=== PATIENT | female | born 1965 | race Caucasian/White ===

== ENCOUNTER 2020-02-02 20:28 | Inpatient (IN) | payer MEDICAID ==
[~2020-02-02] VITALS: Ht 165.1 cm; Wt 148.5 kg
[~2020-02-02 20:28] MED LIST: CLOP75TA28 PO; LEVO200T46 PO; LISI-646 PO; METF-370 PO
[2020-02-02] MEDS ORDERED: DOXYCYCLINE 100 MG TAB/CAP PO ONE (23:45)
[2020-02-02] MEDS ORDERED: methylPREDNISolone SOD SUCC 125 MG/2 ML VL IM ONE (23:45)
[2020-02-02] MEDS ORDERED: cefTRIAXone SOD 1,000 MG VL IM ONE (23:45)
[2020-02-03 00:03] LABS: Basophils # (auto) 0 10 ^3/uL (0-0.2); Basophils % (auto) 0.2 % (0.0-2.0); Eosinophils # (auto) 0 10 ^3/uL (0-0.8); Hematocrit 47.4 % (36.0-46.0); Hemoglobin 15.5 g/dL (12.2-16.2); Lymphocytes % (auto) 29.6 % (10.0-50.0); Mean Corpuscular Hemoglobin 29.3 pg (28.0-32.0); Mean Corpuscular Hgb Conc. 32.8 g/dL (32.0-36.0); Mean Corpuscular Volume 89.2 fL (80.0-100.0); Monocytes # (auto) 0.5 10 ^3/uL (0-1.3); Monocytes % (auto) 7.4 % (0.0-12.0); Neutrophils # (auto) 4.2 10 ^3/uL (1.6-8.6); Neutrophils % (auto) 62.8 % (37.0-80.0); Nucleated Red Blood Cells % 0.1 %; Platelet Count (auto) 166 10^3/uL (140-450); Red Blood Cells 5.31 10^6/uL (4.0-5.20); Red Cell Distribution Width 14.9 % (11.8-14.3); White Blood Cell 6.7 10^3/uL (4.4-10.8)
[2020-02-03 00:22] LABS: INR 0.91 (0.9-1.15); Partial Thromboplastin Time 31.6 sec (23.0-31.2)
[2020-02-03 00:25] LABS: Albumin 3.6 g/dL (3.4-5.0); Calcium 8.5 mg/dL (8.5-10.1); Potassium 3.4 mmol/L (3.5-5.1)
[2020-02-03 00:30] LABS: Bilirubin, Total 0.4 mg/dL (0.2-1.0); Total Protein 7.6 g/dL (6.4-8.2)
[2020-02-03] MEDS ORDERED: ENOXAPARIN SOD 100 MG/1 ML SYRINGE SC ONE (01:00)
[2020-02-03] MEDS ORDERED: CLOPIDOGREL BISULFATE 75 MG TAB PO ONE (01:00)
[2020-02-03] MEDS ORDERED: POTASSIUM CHL 20 Meq TABLET PO ONE (01:15)
[2020-02-03 01:58] LABS: CRP High Sensitivity 0.89 mg/dL (< 0.3)
[2020-02-03] MEDS ORDERED: DOCUSATE SOD 100 MG CAP PO PRN (03:45)
[2020-02-03] MEDS ORDERED: ACETAMINOPHEN 500 MG TAB PO PRN (03:45)
[2020-02-03] MEDS ORDERED: MORPHINE SULF INJ 2 MG/ML SYRINGE 1ML IV PRN (03:45)
[2020-02-03] MEDS ORDERED: ONDANSETRON HCL 4 MG/2 ML VIAL IV PRN (03:45)
[2020-02-03] MEDS ORDERED: NITROGLYCERIN 0.4 MG SL TAB SL PRN (03:45)
[2020-02-03] MEDS ORDERED: DEXTROSE (50%) 50ML SYRG IV PRN (03:45)
[2020-02-03] MEDS ORDERED: cefTRIAXone 1GM/50ML D5W 50 ML IV ONE ×2 (08:12→08:30)
[2020-02-03] MEDS: ACCU-CHEK COMFORT CURVE STRIP VI SCH ×3 (08:28→16:54)
[2020-02-03] MEDS ORDERED: methylPREDNISolone SOD SUCC 125 MG/2 ML VL IV ONE (08:30)
[2020-02-03] MEDS: InsuLIN REG 1unit/0.01ml Soln (100units/ml) SC SCH ×4 (08:33→22:56)
[2020-02-03] MEDS: LEVOTHYROXINE SODIUM 100 MCG TAB PO SCH (09:23)
[2020-02-03] MEDS: DOXYCYCLINE 100MG/250ML 250 ML IV SCH (10:00)
[2020-02-03] MEDS: ENOXAPARIN SOD 40 MG/0.4 ML SYRINGE SC SCH (10:00)
[2020-02-03] MEDS: DexAMETHasone SOD PHOS 10MG/1ML VIAL INJ IV SCH (10:00)
[2020-02-03] MEDS: CHOLECALCIFEROL (VITD3) 2,000 UNIT CAP PO SCH (10:19)
[2020-02-03] MEDS: ASCORBIC ACID 1,000 MG TAB PO SCH (10:19)
[2020-02-03] MEDS: ZINC SULFATE 220mg CAP or TAB PO SCH (10:20)
[2020-02-03] MEDS: MULTIPLE VITAMIN TAB PO SCH (10:20)
[2020-02-03] MEDS: PANTOPRAZOLE 40 MG/10 ML VIAL INJ IV SCH (10:20)
[2020-02-03] MEDS: BUDESONIDE (INHALATION) 180 MCG IH IN SCH ×2 (11:18→22:29)
[2020-02-03] MEDS ORDERED: REMDESIVIR PER PHARMACY 0 ML IV SCH (19:30)
[2020-02-03] MEDS ORDERED: REMDESIVIR 200 MG in NS 210ml LOADING DOSE ADULT IV ONE (22:15)
[2020-02-03] MEDS: ALBUTEROL SULF HFA 90MCG INH 200DOSE IN PRN (22:29)
[2020-02-04] MEDS: DOXYCYCLINE 100MG/250ML 250 ML IV SCH ×3 (00:26→21:52)
[2020-02-04] MEDS: ENOXAPARIN SOD 40 MG/0.4 ML SYRINGE SC SCH ×3 (00:27→21:53)
[2020-02-04] MEDS: ACCU-CHEK COMFORT CURVE STRIP VI SCH ×5 (00:27→23:12)
[2020-02-04] MEDS: LEVOTHYROXINE SODIUM 100 MCG TAB PO SCH (08:06)
[2020-02-04] MEDS: BUDESONIDE (INHALATION) 180 MCG IH IN SCH ×2 (08:14→19:16)
[2020-02-04] MEDS: ALBUTEROL SULF HFA 90MCG INH 200DOSE IN PRN ×2 (08:14→23:12)
[2020-02-04] MEDS: InsuLIN REG 1unit/0.01ml Soln (100units/ml) SC SCH ×4 (08:32→23:13)
[2020-02-04] MEDS: MULTIPLE VITAMIN TAB PO SCH (10:08)
[2020-02-04] MEDS: CHOLECALCIFEROL (VITD3) 2,000 UNIT CAP PO SCH (10:09)
[2020-02-04] MEDS: ZINC SULFATE 220mg CAP or TAB PO SCH (10:09)
[2020-02-04] MEDS: ASCORBIC ACID 1,000 MG TAB PO SCH (10:09)
[2020-02-04] MEDS: DexAMETHasone SOD PHOS 10MG/1ML VIAL INJ IV SCH (10:09)
[2020-02-04] MEDS: PANTOPRAZOLE 40 MG/10 ML VIAL INJ IV SCH (10:09)
[2020-02-04 10:17] LABS: Basophils # (auto) 0 10 ^3/uL (0-0.2); Basophils % (auto) 0.1 % (0.0-2.0); Eosinophils # (auto) 0 10 ^3/uL (0-0.8); Hemoglobin 15.2 g/dL (12.2-16.2); Lymphocytes # (auto) 1.5 10 ^3/uL (0.4-5.4); Lymphocytes % (auto) 21.2 % (10.0-50.0); Mean Corpuscular Hemoglobin 30.1 pg (28.0-32.0); Mean Corpuscular Hgb Conc. 33.8 g/dL (32.0-36.0); Mean Corpuscular Volume 89.2 fL (80.0-100.0); Monocytes # (auto) 0.4 10 ^3/uL (0-1.3); Monocytes % (auto) 6.2 % (0.0-12.0); Neutrophils # (auto) 5.3 10 ^3/uL (1.6-8.6); Neutrophils % (auto) 72.5 % (37.0-80.0); Nucleated Red Blood Cells % 0.5 %; Platelet Count (auto) 162 10^3/uL (140-450); Red Blood Cells 5.04 10^6/uL (4.0-5.20); Red Cell Distribution Width 14.5 % (11.8-14.3); White Blood Cell 7.3 10^3/uL (4.4-10.8)
[2020-02-04 10:55] LABS: Albumin 3.1 g/dL (3.4-5.0); BUN/Creatinine Ratio 24.1; Bilirubin, Total 0.4 mg/dL (0.2-1.0); Calcium 8.6 mg/dL (8.5-10.1)
--- NOTE | 2020-02-04 19:30 | NUR ---
PATIENT RESTING IN BED AT THIS TIME. SHE IS ON 4L NC. SHE COMPLAINS OF MILD SHORTNESS OF BREATH BUT CURRENTLY OXYGEN SATURATION IS AT 92%. WILL CONTINUE TO MONITOR.
[2020-02-04 19:32] VITALS: BP 109/56
[2020-02-04] MEDS: REMDESIVIR 100 MG in SODIUM CHL 0.9% 250 ML IV SCH (19:39)
--- NOTE | 2020-02-04 19:39 | NUR ---
PATIENT STARTED REMDESIVIR AT THIS TIME.
--- NOTE | 2020-02-04 20:50 | NUR ---
REMDESEVIR COMPLETED AT THIS TIME.
[2020-02-04 22:00] VITALS: BP 111/74
--- NOTE | 2020-02-05 00:51 | NUR ---
REPORT CALLED TO TESSIE UGALDE.
--- NOTE | 2020-02-05 00:55 | NUR ---
Telemetry admit from ER MARIA ISABELTON admitted to Telemetry unit after SBAR received. Patient oriented to TREMAINE LARA RN primary RN, unit, room, bed, and unit policies regarding patient care and visiting hours. Patient now on continuous telemetry monitoring, tele box #3 and telemetry reading on arrival to unit is sinus rhythm. Patient placed on bedside oxygen, weighed by bed scale and encouraged to call if they need something. All questions and concerns addressed, patient verbalized understanding.
[2020-02-05] MEDS ORDERED: METO25TA5 PO (03:28)
[2020-02-05] MEDS ORDERED: HYDR25TA4 PO (03:28)
[2020-02-05] MEDS ORDERED: INSLANTI SC (03:28)
[2020-02-05] MEDS ORDERED: INSLISPI SC (03:28)
[2020-02-05] MEDS ORDERED: PANT40TA2 PO (03:29)
[2020-02-05] MEDS ORDERED: INFLUENZA QUAD 2020-2021 0.5 ML SYRG IM ONE (03:30)
--- NOTE | 2020-02-05 03:30 | NUR ---
SUPPLEMENTAL OXYGEN Supplemental oxygen titrated down to 11L/min. Spo2 96% patient currently proning. No distress noted. Will continue to monitor. Addendum: 02/05/20 at 0420 by TREMAINE LARA RN RN disregard. incorrect patient.
--- NOTE | 2020-02-05 03:35 | NUR ---
CALL LIGHT Patient provided ice water per request. No distress noted at this time. Will continue to monitor.
[2020-02-05 05:00] VITALS: BP 104/66
[2020-02-05] MEDS: LEVOTHYROXINE SODIUM 100 MCG TAB PO SCH (06:47)
[2020-02-05] MEDS: glipiZIDE 5 MG TAB PO SCH (06:47)
[2020-02-05] MEDS: ACCU-CHEK COMFORT CURVE STRIP VI SCH ×4 (06:48→21:32)
[2020-02-05] MEDS: InsuLIN REG 1unit/0.01ml Soln (100units/ml) SC SCH ×4 (06:49→21:40)
--- NOTE | 2020-02-05 07:30 | NUR ---
Opening Shift Note RECEIVED REPORT FROM NOC RN. Assumed care of patient, awake and alert. PATIENT ON OXYGEN AT 4 LPM VIA NASAL CANNULA WITH No S/S of distress/SOB or pain. BED IN LOWEST, LOCKED POSITION WITH SIDERAILS UP x2 AND CALL LIGHT WITHIN REACH. Instructed on POC and to call for assist PRN, will continue to monitor for changes Q1hr and PRN.
[2020-02-05] MEDS ORDERED: INSULIN LANTUS (GLARGINE) 1 /0.01ml (100units/ml) SC SCH (08:45)
[2020-02-05 09:00] VITALS: BP 117/71
[2020-02-05] MEDS ORDERED: ACETAMINOPHEN 500 MG TAB PO PRN (09:15)
[2020-02-05] MEDS: BUDESONIDE (INHALATION) 180 MCG IH IN SCH ×2 (09:46→20:36)
[2020-02-05] MEDS: ALBUTEROL SULF HFA 90MCG INH 200DOSE IN PRN (09:46)
[2020-02-05] MEDS: PANTOPRAZOLE 40 MG/10 ML VIAL INJ IV SCH (10:06)
[2020-02-05] MEDS: DexAMETHasone SOD PHOS 10MG/1ML VIAL INJ IV SCH (10:06)
[2020-02-05] MEDS: DOXYCYCLINE 100MG/250ML 250 ML IV SCH ×2 (10:06→21:32)
[2020-02-05] MEDS: MULTIPLE VITAMIN TAB PO SCH (10:07)
[2020-02-05] MEDS: ENOXAPARIN SOD 40 MG/0.4 ML SYRINGE SC SCH ×2 (10:07→21:32)
[2020-02-05] MEDS: CHOLECALCIFEROL (VITD3) 2,000 UNIT CAP PO SCH (10:07)
[2020-02-05] MEDS: ZINC SULFATE 220mg CAP or TAB PO SCH (10:07)
[2020-02-05] MEDS: ASCORBIC ACID 1,000 MG TAB PO SCH (10:07)
[2020-02-05] MEDS: ACETAMINOPHEN 325 MG TAB PO PRN ×2 (10:40→21:34)
[2020-02-05 11:22] LABS: Albumin 2.8 g/dL (3.4-5.0); Calcium 8.4 mg/dL (8.5-10.1); Potassium 3.7 mmol/L (3.5-5.1)
[2020-02-05 11:25] LABS: Bilirubin, Total 0.4 mg/dL (0.2-1.0); Total Protein 6.4 g/dL (6.4-8.2)
[2020-02-05] MEDS: INSULIN LANTUS (GLARGINE) 1 /0.01ml (100units/ml) SC SCH (12:55)
[2020-02-05 13:00] VITALS: BP 108/73
[2020-02-05] MEDS: REMDESIVIR 100 MG in SODIUM CHL 0.9% 250 ML IV SCH (15:53)
[2020-02-05] MEDS: CLOPIDOGREL BISULFATE 75 MG TAB PO SCH (16:02)
[2020-02-05] MEDS: LISINOPRIL 20 MG TAB PO SCH (16:03)
[2020-02-05 17:00] VITALS: BP 112/69
--- NOTE | 2020-02-05 19:50 | NUR ---
OPENING SHIFT NOTE Assumed care of patient who is A&O x4. Currently on 4L NC with no s/s of distress. Spo2 is 94% Patient reports productive cough with green phlegm. PIV in right forearm is intact and patent. Flushed with 10ml NS. Bed is in low locked position with side rails up x2. Call light is within reach and patient encouraged to call for assistance when needed. Will continue to monitor for changes PRN.
[2020-02-05 22:00] VITALS: BP 120/85
[2020-02-06 05:00] VITALS: BP 126/72
[2020-02-06] MEDS: LEVOTHYROXINE SODIUM 100 MCG TAB PO SCH (06:53)
[2020-02-06] MEDS: InsuLIN REG 1unit/0.01ml Soln (100units/ml) SC SCH ×4 (06:53→22:22)
[2020-02-06] MEDS: INSULIN LANTUS (GLARGINE) 1 /0.01ml (100units/ml) SC SCH (06:53)
[2020-02-06] MEDS: glipiZIDE 5 MG TAB PO SCH (06:53)
[2020-02-06] MEDS: ACCU-CHEK COMFORT CURVE STRIP VI SCH ×4 (06:54→22:22)
[2020-02-06 08:12] LABS: Basophils # (auto) 0 10 ^3/uL (0-0.2); Basophils % (auto) 0.1 % (0.0-2.0); Eosinophils # (auto) 0 10 ^3/uL (0-0.8); Lymphocytes # (auto) 1.6 10 ^3/uL (0.4-5.4); Lymphocytes % (auto) 35.7 % (10.0-50.0); Mean Corpuscular Hemoglobin 29.6 pg (28.0-32.0); Mean Corpuscular Hgb Conc. 33.4 g/dL (32.0-36.0); Mean Corpuscular Volume 88.5 fL (80.0-100.0); Monocytes # (auto) 0.5 10 ^3/uL (0-1.3); Monocytes % (auto) 10.5 % (0.0-12.0); Neutrophils # (auto) 2.5 10 ^3/uL (1.6-8.6); Neutrophils % (auto) 53.7 % (37.0-80.0); Nucleated Red Blood Cells % 0.3 %; Platelet Count (auto) 191 10^3/uL (140-450); Red Blood Cells 5.08 10^6/uL (4.0-5.20); Red Cell Distribution Width 14.6 % (11.8-14.3); White Blood Cell 4.6 10^3/uL (4.4-10.8)
[2020-02-06 08:35] LABS: Potassium 3.5 mmol/L (3.5-5.1)
[2020-02-06 08:46] LABS: Albumin 2.9 g/dL (3.4-5.0); BUN/Creatinine Ratio 25.5; Bilirubin, Total 0.4 mg/dL (0.2-1.0); Calcium 8.5 mg/dL (8.5-10.1); Magnesium 2.2 mg/dL (1.6-2.6); Total Protein 6.5 g/dL (6.4-8.2)
[2020-02-06] MEDS: DexAMETHasone SOD PHOS 10MG/1ML VIAL INJ IV SCH (09:08)
[2020-02-06] MEDS: ENOXAPARIN SOD 40 MG/0.4 ML SYRINGE SC SCH ×2 (09:09→22:22)
[2020-02-06] MEDS: ASCORBIC ACID 1,000 MG TAB PO SCH (09:10)
[2020-02-06] MEDS: LISINOPRIL 20 MG TAB PO SCH (09:10)
[2020-02-06] MEDS: MULTIPLE VITAMIN TAB PO SCH (09:10)
[2020-02-06] MEDS: CHOLECALCIFEROL (VITD3) 2,000 UNIT CAP PO SCH (09:11)
[2020-02-06] MEDS: PANTOPRAZOLE 40 MG TAB PO SCH (09:11)
[2020-02-06] MEDS: ZINC SULFATE 220mg CAP or TAB PO SCH (09:12)
[2020-02-06] MEDS: DOXYCYCLINE 100MG/250ML 250 ML IV SCH ×2 (09:12→22:22)
[2020-02-06] MEDS: CLOPIDOGREL BISULFATE 75 MG TAB PO SCH (09:14)
[2020-02-06] MEDS: ACETAMINOPHEN 325 MG TAB PO PRN (09:29)
[2020-02-06] MEDS: BUDESONIDE (INHALATION) 180 MCG IH IN SCH ×2 (10:00→22:00)
[2020-02-06] MEDS ORDERED: CLOPIDOGREL BISULFATE 75 MG TAB PO SCH (10:00)
[2020-02-06] MEDS: REMDESIVIR 100 MG in SODIUM CHL 0.9% 250 ML IV SCH (17:30)
--- NOTE | 2020-02-06 18:50 | NUR ---
remdesivir vs 1730 pre 119/72 hr 70 1745-15 minutes 106/56 hr 64 1845 post 109/61 91hr no s/s of distress noted
--- NOTE | 2020-02-06 19:55 | NUR ---
Opening Shift Note Assumed care of patient, awake and alert. No S/S of distress/SOB or pain. Instructed on POC and to call for assist PRN, will continue to monitor for changes Q1hr and PRN.
[2020-02-06 20:00] VITALS: BP 128/70
[2020-02-06 21:44] VITALS: BP 128/70
[2020-02-06] MEDS: ALBUTEROL SULF HFA 90MCG INH 200DOSE IN PRN (23:42)
[2020-02-07 05:00] VITALS: BP 98/59
[2020-02-07] MEDS: LEVOTHYROXINE SODIUM 100 MCG TAB PO SCH (06:33)
[2020-02-07] MEDS: glipiZIDE 5 MG TAB PO SCH (06:33)
[2020-02-07] MEDS: ACCU-CHEK COMFORT CURVE STRIP VI SCH ×3 (06:34→17:05)
[2020-02-07] MEDS: INSULIN LANTUS (GLARGINE) 1 /0.01ml (100units/ml) SC SCH (06:35)
[2020-02-07] MEDS: InsuLIN REG 1unit/0.01ml Soln (100units/ml) SC SCH ×3 (06:35→17:00)
[2020-02-07 09:00] VITALS: BP 127/74
[2020-02-07 09:18] LABS: Basophils # (auto) 0 10 ^3/uL (0-0.2); Basophils % (auto) 0.1 % (0.0-2.0); Eosinophils # (auto) 0 10 ^3/uL (0-0.8); Hematocrit 46.5 % (36.0-46.0); Hemoglobin 15.5 g/dL (12.2-16.2); Lymphocytes # (auto) 1.8 10 ^3/uL (0.4-5.4); Lymphocytes % (auto) 34.2 % (10.0-50.0); Mean Corpuscular Hemoglobin 29.3 pg (28.0-32.0); Mean Corpuscular Hgb Conc. 33.3 g/dL (32.0-36.0); Mean Corpuscular Volume 88.2 fL (80.0-100.0); Monocytes # (auto) 0.5 10 ^3/uL (0-1.3); Monocytes % (auto) 8.8 % (0.0-12.0); Neutrophils % (auto) 56.9 % (37.0-80.0); Nucleated Red Blood Cells % 0.2 %; Platelet Count (auto) 224 10^3/uL (140-450); Red Blood Cells 5.27 10^6/uL (4.0-5.20); Red Cell Distribution Width 14.1 % (11.8-14.3); White Blood Cell 5.3 10^3/uL (4.4-10.8)
[2020-02-07 09:28] LABS: Calcium 8.7 mg/dL (8.5-10.1); Potassium 3.3 mmol/L (3.5-5.1)
[2020-02-07 09:32] LABS: BUN/Creatinine Ratio 25.9; Bilirubin, Total 0.4 mg/dL (0.2-1.0); CRP High Sensitivity 0.83 mg/dL (< 0.3); Total Protein 6.9 g/dL (6.4-8.2)
[2020-02-07] MEDS: ENOXAPARIN SOD 40 MG/0.4 ML SYRINGE SC SCH (09:36)
[2020-02-07] MEDS: DexAMETHasone SOD PHOS 10MG/1ML VIAL INJ IV SCH (09:36)
[2020-02-07] MEDS: DOXYCYCLINE 100MG/250ML 250 ML IV SCH (09:37)
[2020-02-07] MEDS: LISINOPRIL 20 MG TAB PO SCH (09:38)
[2020-02-07] MEDS: CLOPIDOGREL BISULFATE 75 MG TAB PO SCH (09:39)
[2020-02-07] MEDS: ASCORBIC ACID 1,000 MG TAB PO SCH (09:40)
[2020-02-07] MEDS: CHOLECALCIFEROL (VITD3) 2,000 UNIT CAP PO SCH (09:40)
[2020-02-07] MEDS: PANTOPRAZOLE 40 MG TAB PO SCH (09:41)
[2020-02-07] MEDS: MULTIPLE VITAMIN TAB PO SCH (09:41)
[2020-02-07] MEDS: ZINC SULFATE 220mg CAP or TAB PO SCH (09:42)
[2020-02-07] MEDS: BUDESONIDE (INHALATION) 180 MCG IH IN SCH (10:00)
--- NOTE | 2020-02-07 12:07 | NUR ---
Nutrition Assessment Notes please see attached link for complete assessment Est energy needs ABW 84 [id number] kcal (17-20 kcal/kg ABW) Est protein needs 84-92 g (1.0-1.1 g/kgABW) Will monitor and reassess prn. Addendum: 02/07/20 at [address] Amended: Links added.
[2020-02-07] MEDS: ALBUTEROL SULF HFA 90MCG INH 200DOSE IN PRN (12:47)
[2020-02-07 13:00] VITALS: BP 124/74
--- NOTE | 2020-02-07 16:11 | NUR ---
SABA spoke with Ashley from [facility] ([phone]), she has receive order for 4L oxygen and will call back to give ETA for oxygen.
--- NOTE | 2020-02-07 16:28 | NUR ---
Spoke with SG they advise me that authorization is pending, called KARLA Segura with [facility] and left her a voice mail message regarding authorization. Pending authorization from [facility].
[2020-02-07] MEDS: REMDESIVIR 100 MG in SODIUM CHL 0.9% 250 ML IV SCH (16:30)
--- NOTE | 2020-02-07 16:50 | NUR ---
I spoke with [employer] Imelda regarding home oxygen, she said authorization has been given to . I faxed home health order to [facility] and [facility]-requesting authorization for [facility].
--- NOTE | 2020-02-07 17:19 | NUR ---
I called [phone] and spoke with Kate, MICHAEL for portable oxygen tank is between 530pm and 7pm-I relayed this information to patient's primary nurse.
--- NOTE | 2020-02-07 18:30 | NUR ---
REMDESIVIR V/S PRE 131/77 HR 77 15 MINUTES- 143/76 91 HR POST 140/75 HR 94 NO S/S OF DISTRESS NOTED
--- NOTE | 2020-02-07 19:26 | NUR ---
WAITING ON OXYGEN TO BE DELIVERED FOR PATIENT TO BE D/C. DISCHARGE ENDORSED TO [facility] CASTRO.
--- NOTE | 2020-02-07 19:50 | NUR ---
Opening Shift Note Assumed care of patient, awake and alert. No S/S of distress/SOB or pain. Patient made aware of oxygen delivery. Instructed on POC and to call for assist PRN, will continue to monitor for changes Q1hr and PRN.
--- NOTE | 2020-02-07 21:05 | NUR ---
Discharge Oxygen tank deliver to hospital, educated patient on how to use oxygen, discharge packet given, IV and telebox removed. Patient wheelchair down to car, no status change.
--- NOTE | 2020-02-08 10:07 | NUR ---
I received a call from Yanci at [facility] letting me know that the authorization number for [facility] is [id number]. I called [facility] and spoke with Vanessa, she confirmed that they are able to accept the patient.
== END 2020-02-07 21:05 | disposition home health service (06) | DRG 137 ==
LOC: ER 20:28 → TELE 20:29 → TELE-EAST 02-03 23:49
PROVIDERS: ADMIT Nurse Practitioner Family; ATTEND Internal Medicine
PROC: XW033E5 Introduction of Remdesivir Anti-infective into Peripheral Vein, Percutaneous Approach, New Technology Group 5 (ICD-10-PCS; principal; 2020-02-03)
DX: U07.1 COVID-19 (principal); J12.89 Other viral pneumonia; J96.01 Acute respiratory failure with hypoxia; E87.6 Hypokalemia; E66.01 Morbid (severe) obesity due to excess calories; J98.11 Atelectasis; E11.65 Type 2 diabetes mellitus with hyperglycemia; E03.9 Hypothyroidism, unspecified; E78.5 Hyperlipidemia, unspecified; I10 Essential (primary) hypertension; I25.2 Old myocardial infarction; Z79.4 Long term (current) use of insulin; Z82.49 Family history of ischemic heart disease and other diseases of the circulatory system; Z83.3 Family history of diabetes mellitus; Z68.43 Body mass index [BMI] 50.0-59.9, adult; Z88.6 Allergy status to analgesic agent; R77.8 Other specified abnormalities of plasma proteins; I24.8 Other forms of acute ischemic heart disease
CPT/HCPCS: 36415; 36600; 71045; 80053; 82728; 82805; 82962; 83036; 83605; 83615; 83735; 83880; 84443; 84484; 85025; 85379; 85610; 85730; 86141; 87426; 93005; 94640; 96365; 96372; 96375; C9113; G0378; J0696; J1100; J1815; J2405; J3490

== ENCOUNTER 2021-06-19 03:01 | Inpatient (IN) | payer MEDICAID ==
[~2021-06-19] VITALS: Ht 165.1 cm; Wt 127.6 kg
[~2021-06-19 03:01] MED LIST changes: +HYDR25TA4 PO; +INSLANTI SC; +INSLISPI SC; +LEVO200T PO; -LEVO200T46 PO; -LISI-646 PO; +LISI20TA28 PO; -METF-370 PO; +METO25TA5 PO; +PANT40TA2 PO
[2021-06-19] MEDS ORDERED: methylPREDNISolone SOD SUCC 125 MG/2 ML VL IV ONE (03:45)
[2021-06-19] MEDS ORDERED: IPRATROPIUM BROM 0.5 MG/2.5ML INH SOL NEB ONE (03:45)
[2021-06-19] MEDS ORDERED: ALBUTEROL SULF 2.5 MG/0.5ML(0.5%) NEB SOLN NEB ONE (03:45)
[2021-06-19 04:08] LABS: Basophils # (auto) 0 10 ^3/uL (0-0.2); Basophils % (auto) 0.7 % (0.0-2.0); Eosinophils # (auto) 0 10 ^3/uL (0-0.8); Eosinophils % (auto) 0.1 % (0.0-7.0); Hematocrit 46.8 % (36.0-46.0); Hemoglobin 15.5 g/dL (12.2-16.2); Lymphocytes # (auto) 2.5 10 ^3/uL (0.4-5.4); Lymphocytes % (auto) 44.7 % (10.0-50.0); Mean Corpuscular Hemoglobin 29.2 pg (28.0-32.0); Mean Corpuscular Hgb Conc. 33.2 g/dL (32.0-36.0); Mean Corpuscular Volume 87.9 fL (80.0-100.0); Monocytes # (auto) 0.5 10 ^3/uL (0-1.3); Monocytes % (auto) 9.5 % (0.0-12.0); Neutrophils # (auto) 2.5 10 ^3/uL (1.6-8.6); Nucleated Red Blood Cells % 0.2 %; Red Blood Cells 5.32 10^6/uL (4.0-5.20); Red Cell Distribution Width 14.6 % (11.8-14.3); White Blood Cell 5.6 10^3/uL (4.4-10.8)
[2021-06-19 04:31] LABS: Albumin 3.3 g/dL (3.4-5.0); Potassium 4.4 mmol/L (3.5-5.1)
[2021-06-19 04:34] LABS: BUN/Creatinine Ratio 18.8; Calcium 8.8 mg/dL (8.5-10.1)
[2021-06-19 04:49] LABS: Bilirubin, Total 0.3 mg/dL (0.2-1.0); Total Protein 6.7 g/dL (6.4-8.2)
[2021-06-19 06:30] LABS: Urine Bacteria NONE SEEN /hpf (None Seen); Urine Blood Negative /uL (Negative); Urine Specific Gravity 1.013 (1.001-1.035); Urine WBC <1 /hpf (0 - 5)
[2021-06-19] MEDS ORDERED: DEXTROSE (50%) 50ML SYRG IV PRN (10:00)
[2021-06-19] MEDS ORDERED: FUROSEMIDE 40 MG/4 ML VIAL IV SCH (10:00)
[2021-06-19] MEDS ORDERED: ONDANSETRON HCL 4 MG/2 ML VIAL IV PRN (10:00)
[2021-06-19] MEDS ORDERED: NITROGLYCERIN 0.4 MG SL TAB SL PRN (10:00)
[2021-06-19] MEDS ORDERED: MORPHINE SULFATE INJECTION 2 MG/ML SYRG IV PRN ×2 (10:00)
[2021-06-19] MEDS ORDERED: HYDROcodone-ACET 5/325MG TAB PO PRN (10:00)
[2021-06-19] MEDS: cefTRIAXone 1GM/50ML D5W 50 ML IV SCH (10:19)
[2021-06-19] MEDS: AZITHROMYCIN 500MG/ 250ML 250 ML IV SCH (10:19)
[2021-06-19] MEDS: ENOXAPARIN SOD 40 MG/0.4 ML SYRINGE SC SCH (10:19)
[2021-06-19] MEDS: ACETAMINOPHEN 325 MG TAB PO PRN ×2 (10:20→18:38)
[2021-06-19] MEDS: ALBUTEROL SULF 2.5 MG/0.5ML(0.5%) NEB SOLN NEB SCH ×4 (10:22→22:00)
[2021-06-19] MEDS: IPRATROPIUM BROM 0.5 MG/2.5ML INH SOL NEB SCH ×4 (10:23→22:00)
[2021-06-19 10:31] VITALS: BP 141/86
[2021-06-19] MEDS: InsuLIN REG 1unit/0.01ml Soln (100units/ml) SC SCH ×2 (12:17→16:46)
[2021-06-19] MEDS: ACCU-CHEK COMFORT CURVE STRIP VI SCH ×3 (12:18→22:29)
[2021-06-19 16:11] VITALS: BP 126/84
[2021-06-19] MEDS ORDERED: InsuLIN REG 1unit/0.01ml Soln (100units/ml) SC SCH (22:00)
[2021-06-19] MEDS: INSULIN LANTUS (GLARGINE) 1 /0.01ml (100units/ml) SC SCH (22:29)
[2021-06-20 05:00] VITALS: BP 131/71
[2021-06-20] MEDS: InsuLIN REG 1unit/0.01ml Soln (100units/ml) SC SCH ×2 (06:49→12:30)
[2021-06-20] MEDS: ACCU-CHEK COMFORT CURVE STRIP VI SCH ×4 (06:49→22:37)
[2021-06-20] MEDS: IPRATROPIUM BROM 0.5 MG/2.5ML INH SOL NEB SCH ×5 (07:05→22:00)
[2021-06-20] MEDS: ALBUTEROL SULF 2.5 MG/0.5ML(0.5%) NEB SOLN NEB SCH ×5 (07:05→22:00)
[2021-06-20 08:59] VITALS: BP 127/77
[2021-06-20] MEDS: AZITHROMYCIN 500MG/ 250ML 250 ML IV SCH (10:00)
[2021-06-20] MEDS ORDERED: FUROSEMIDE 20 MG TAB PO SCH (10:00)
[2021-06-20] MEDS: cefTRIAXone 1GM/50ML D5W 50 ML IV SCH (10:13)
[2021-06-20] MEDS: ENOXAPARIN SOD 40 MG/0.4 ML SYRINGE SC SCH (10:15)
[2021-06-20] MEDS ORDERED: PANTOPRAZOLE 40 MG TAB PO SCH (10:45)
[2021-06-20] MEDS: methylPREDNISolone SOD SUCC 125 MG/2 ML VL IV SCH ×2 (12:21→22:36)
[2021-06-20 12:47] VITALS: BP 134/83
[2021-06-20 17:00] VITALS: BP 133/84
[2021-06-20] MEDS ORDERED: DEXTROSE (50%) 50ML SYRG IV PRN (18:15)
[2021-06-20] MEDS ORDERED: InsuLIN REG 1unit/0.01ml Soln (100units/ml) SC ONE (18:30)
[2021-06-20] MEDS: ACETAMINOPHEN 325 MG TAB PO PRN (18:36)
[2021-06-20 22:00] VITALS: BP 118/64
[2021-06-20] MEDS ORDERED: InsuLIN REG 1unit/0.01ml Soln (100units/ml) SC SCH (22:00)
[2021-06-20] MEDS: INSULIN LANTUS (GLARGINE) 1 /0.01ml (100units/ml) SC SCH (22:46)
[2021-06-21 05:00] VITALS: BP 146/83
[2021-06-21] MEDS: methylPREDNISolone SOD SUCC 125 MG/2 ML VL IV SCH (05:41)
[2021-06-21] MEDS: IPRATROPIUM BROM 0.5 MG/2.5ML INH SOL NEB SCH ×2 (06:35→10:03)
[2021-06-21] MEDS: ALBUTEROL SULF 2.5 MG/0.5ML(0.5%) NEB SOLN NEB SCH ×2 (06:35→10:03)
[2021-06-21] MEDS: ACCU-CHEK COMFORT CURVE STRIP VI SCH (06:48)
[2021-06-21] MEDS ORDERED: InsuLIN REG 1unit/0.01ml Soln (100units/ml) SC SCH (07:00)
[2021-06-21 08:03] LABS: Basophils # (auto) 0 10 ^3/uL (0-0.2); Basophils % (auto) 0.2 % (0.0-2.0); Eosinophils # (auto) 0 10 ^3/uL (0-0.8); Hematocrit 46.1 % (36.0-46.0); Hemoglobin 15.5 g/dL (12.2-16.2); Mean Corpuscular Hemoglobin 29.7 pg (28.0-32.0); Mean Corpuscular Hgb Conc. 33.6 g/dL (32.0-36.0); Mean Corpuscular Volume 88.5 fL (80.0-100.0); Monocytes # (auto) 0.2 10 ^3/uL (0-1.3); Monocytes % (auto) 2.1 % (0.0-12.0); Neutrophils % (auto) 87.7 % (37.0-80.0); Nucleated Red Blood Cells % 0.2 %; Red Blood Cells 5.21 10^6/uL (4.0-5.20); Red Cell Distribution Width 14.6 % (11.8-14.3); White Blood Cell 10.2 10^3/uL (4.4-10.8)
[2021-06-21 08:28] LABS: Potassium 4.6 mmol/L (3.5-5.1)
[2021-06-21 08:37] LABS: BUN/Creatinine Ratio 28.9; Calcium 9.1 mg/dL (8.5-10.1); Magnesium 2.3 mg/dL (1.6-2.6)
[2021-06-21 08:58] VITALS: BP 179/111
[2021-06-21] MEDS: cefTRIAXone 1GM/50ML D5W 50 ML IV SCH (09:00)
[2021-06-21] MEDS: AZITHROMYCIN 500MG/ 250ML 250 ML IV SCH (10:00)
[2021-06-21] MEDS ORDERED: FURO1TAB31 PO (11:13)
[2021-06-21] MEDS ORDERED: DOXY-286 PO (11:13)
[2021-06-21] MEDS ORDERED: METH4PAK PO (11:13)
[2021-06-21 13:16] VITALS: BP 127/77
== END 2021-06-21 14:00 | disposition home or self-care (01) | DRG 140 ==
LOC: EDBD 03:01 → ER 03:01 → TELE 09:48 → TELE-CENTR 16:27
PROVIDERS: ADMIT Internal Medicine; ATTEND Internal Medicine
DX: J44.1 Chronic obstructive pulmonary disease with (acute) exacerbation (principal); J96.21 Acute and chronic respiratory failure with hypoxia; I50.33 Acute on chronic diastolic (congestive) heart failure; I31.3 Pericardial effusion (noninflammatory); I11.0 Hypertensive heart disease with heart failure; J20.9 Acute bronchitis, unspecified; E03.9 Hypothyroidism, unspecified; E11.9 Type 2 diabetes mellitus without complications; Z96.653 Presence of artificial knee joint, bilateral; G47.33 Obstructive sleep apnea (adult) (pediatric); Z79.4 Long term (current) use of insulin; Z68.42 Body mass index [BMI] 45.0-49.9, adult; Z82.49 Family history of ischemic heart disease and other diseases of the circulatory system; Z83.3 Family history of diabetes mellitus; Z86.16 Personal history of COVID-19; Z88.8 Allergy status to other drugs, medicaments and biological substances; Z20.822 Contact with and (suspected) exposure to COVID-19
CPT/HCPCS: 36415; 71045; 80048; 80053; 81001; 82962; 83036; 83735; 83880; 84484; 85025; 93005; 93306; 94640; 94660; 96365; 96372; 96375; 97163; 99291; G0378; J0696; J1815

== ENCOUNTER → 2021-10-30 | Outpatient (CLI) | payer MEDICAID ==
[~2021-10-30] MED LIST changes: +ALBUTEROL SULF 2.5 MG/0.5ML(0.5%) NEB SOLN ONE; +DOXY-286 PO; +FURO1TAB31 PO; -HYDR25TA4 PO; +METH4PAK PO
== END | disposition home or self-care (01) ==
LOC: RT 09:21
PROVIDERS: ATTEND Internal Medicine Pulmonary Disease
DX: R06.02 Shortness of breath (principal)
CPT/HCPCS: 94060; 94727; 94729

== ENCOUNTER 2022-05-07 15:25 | Inpatient (IN) | payer MEDICAID ==
[~2022-05-07] VITALS: Ht 165.1 cm; Wt 118.8 kg
[~2022-05-07 15:25] MED LIST changes: -ALBUTEROL SULF 2.5 MG/0.5ML(0.5%) NEB SOLN ONE
[2022-05-07] MEDS ORDERED: SODIUM CHLORIDE 0.9% 1,000 ML IV ONE (15:45)
[2022-05-07] MEDS ORDERED: InsuLIN REG 1unit/0.01ml Soln (100units/ml) IV ONE (15:45)
[2022-05-07 16:11] LABS: Basophils # (auto) 0 10 ^3/uL (0-0.2); Basophils % (auto) 0.3 % (0.0-2.0); Eosinophils # (auto) 0 10 ^3/uL (0-0.8); Hematocrit 54.2 % (36.0-46.0); Lymphocytes # (auto) 2.6 10 ^3/uL (0.4-5.4); Lymphocytes % (auto) 35.7 % (10.0-50.0); Mean Corpuscular Hemoglobin 28.8 pg (28.0-32.0); Mean Corpuscular Hgb Conc. 33.2 g/dL (32.0-36.0); Mean Corpuscular Volume 86.6 fL (80.0-100.0); Monocytes # (auto) 0.6 10 ^3/uL (0-1.3); Nucleated Red Blood Cells % 0.9 %; Red Blood Cells 6.26 10^6/uL (4.0-5.20); Red Cell Distribution Width 15.1 % (11.8-14.3); White Blood Cell 7.2 10^3/uL (4.4-10.8)
[2022-05-07 16:33] LABS: Albumin 3.6 g/dL (3.4-5.0); BUN/Creatinine Ratio 18.9; Potassium 4.1 mmol/L (3.5-5.1)
[2022-05-07 16:43] LABS: Bilirubin, Total 0.5 mg/dL (0.2-1.0); Total Protein 7.1 g/dL (6.4-8.2)
[2022-05-07 17:02] LABS: Lactic Acid w/Reflex 2.1 mmol/L (0.4-2.0)
[2022-05-07] MEDS ORDERED: DEXTROSE (50%) 50ML SYRG IV PRN (21:00)
[2022-05-07] MEDS ORDERED: TEMAZEPAM 15 MG CAP PO PRN (21:00)
[2022-05-07] MEDS ORDERED: NITROGLYCERIN 0.4 MG SL TAB SL PRN (21:00)
[2022-05-07] MEDS ORDERED: ONDANSETRON HCL 4 MG/2 ML VIAL IV PRN (21:00)
[2022-05-07] MEDS ORDERED: MORPHINE SULFATE INJ 2 MG/ml SYRG IV PRN (21:00)
[2022-05-07] MEDS ORDERED: MAGNESIUM SULFATE 1GM/100ML 100 ML IV ONE (22:00)
[2022-05-07] MEDS: ATORVASTATIN 20 MG TAB PO SCH (23:02)
[2022-05-07 23:45] VITALS: BP 114/60
[2022-05-08] MEDS: ACETAMINOPHEN 325 MG TAB PO PRN ×2 (00:21→09:59)
[2022-05-08] MEDS: InsuLIN REG 1unit/0.01ml Soln (100units/ml) SC SCH ×6 (00:32→21:26)
[2022-05-08 00:39] VITALS: BP 114/90
[2022-05-08] MEDS ORDERED: ATOR40TA52 PO (01:03)
[2022-05-08] MEDS ORDERED: MACI1TAB2 PO (01:03)
[2022-05-08] MEDS: ACCU-CHEK COMFORT CURVE STRIP VI SCH ×7 (04:13→23:58)
[2022-05-08 05:00] VITALS: BP 124/74
[2022-05-08] MEDS ORDERED: LEVOTHYROXINE SODIUM 100 MCG TAB PO ONE (05:45)
[2022-05-08 06:17] LABS: Basophils # (auto) 0 10 ^3/uL (0-0.2); Basophils % (auto) 0.1 % (0.0-2.0); Eosinophils # (auto) 0 10 ^3/uL (0-0.8); Hematocrit 46.9 % (36.0-46.0); Lymphocytes # (auto) 2.3 10 ^3/uL (0.4-5.4); Lymphocytes % (auto) 37.4 % (10.0-50.0); Mean Corpuscular Hemoglobin 29.6 pg (28.0-32.0); Mean Corpuscular Hgb Conc. 34.1 g/dL (32.0-36.0); Mean Corpuscular Volume 86.9 fL (80.0-100.0); Monocytes # (auto) 0.5 10 ^3/uL (0-1.3); Monocytes % (auto) 9.1 % (0.0-12.0); Neutrophils # (auto) 3.2 10 ^3/uL (1.6-8.6); Neutrophils % (auto) 53.4 % (37.0-80.0); Nucleated Red Blood Cells % 0.4 %; Red Cell Distribution Width 15.2 % (11.8-14.3)
[2022-05-08] MEDS: LEVOTHYROXINE SODIUM 100 MCG TAB PO SCH (06:17)
[2022-05-08 06:34] LABS: Potassium 3.8 mmol/L (3.5-5.1)
[2022-05-08 06:41] LABS: BUN/Creatinine Ratio 21.3; Bilirubin, Total 0.5 mg/dL (0.2-1.0); Calcium 8.6 mg/dL (8.5-10.1); Total Protein 6.4 g/dL (6.4-8.2)
[2022-05-08 09:00] VITALS: BP 100/65
[2022-05-08] MEDS: PANTOPRAZOLE 40 MG TAB PO SCH (09:58)
[2022-05-08] MEDS: CLOPIDOGREL BISULFATE 75 MG TAB PO SCH (09:58)
[2022-05-08] MEDS: ENOXAPARIN SOD 40 MG/0.4 ML SYRINGE SC SCH (09:59)
[2022-05-08] MEDS: LISINOPRIL 20 MG TAB PO SCH (10:00)
[2022-05-08] MEDS: FUROSEMIDE 40 MG TAB PO SCH (10:00)
[2022-05-08 13:00] VITALS: BP 94/40
[2022-05-08 16:53] VITALS: BP 104/49
[2022-05-08] MEDS: SILDENAFIL CITRATE 20 MG TAB PO SCH ×2 (17:48→21:06)
[2022-05-08 22:00] VITALS: BP 111/59
[2022-05-08] MEDS: ATORVASTATIN 20 MG TAB PO SCH (22:21)
[2022-05-08] MEDS: INSULIN LANTUS (GLARGINE) 1 /0.01ml (100units/ml) SC SCH (22:21)
[2022-05-09] MEDS: InsuLIN REG 1unit/0.01ml Soln (100units/ml) SC SCH ×4 (00:02→13:27)
[2022-05-09] MEDS: ACCU-CHEK COMFORT CURVE STRIP VI SCH ×3 (04:06→13:27)
[2022-05-09 05:00] VITALS: BP 111/66
[2022-05-09] MEDS: INSULIN LANTUS (GLARGINE) 1 /0.01ml (100units/ml) SC SCH (06:21)
[2022-05-09] MEDS: LEVOTHYROXINE SODIUM 100 MCG TAB PO SCH (06:21)
[2022-05-09] MEDS: ENOXAPARIN SOD 40 MG/0.4 ML SYRINGE SC SCH (08:47)
[2022-05-09] MEDS: LISINOPRIL 20 MG TAB PO SCH (08:47)
[2022-05-09] MEDS: PANTOPRAZOLE 40 MG TAB PO SCH (08:48)
[2022-05-09] MEDS: FUROSEMIDE 40 MG TAB PO SCH (08:48)
[2022-05-09] MEDS: SILDENAFIL CITRATE 20 MG TAB PO SCH ×2 (08:48→13:31)
[2022-05-09] MEDS: CLOPIDOGREL BISULFATE 75 MG TAB PO SCH (08:48)
[2022-05-09 09:20] VITALS: BP 111/70
[2022-05-09 13:09] VITALS: BP 135/88
[2022-05-09 14:37] VITALS: BP 137/78
== END 2022-05-09 16:25 | disposition home or self-care (01) | DRG 190 ==
LOC: ER 15:25 → TELE 20:57 → TELE-WESTW 22:58
PROVIDERS: ADMIT Nurse Practitioner; ATTEND Nurse Practitioner Acute Care
DX: I21.4 Non-ST elevation (NSTEMI) myocardial infarction (principal); I27.20 Pulmonary hypertension, unspecified; E11.65 Type 2 diabetes mellitus with hyperglycemia; E06.9 Thyroiditis, unspecified; I11.0 Hypertensive heart disease with heart failure; E03.9 Hypothyroidism, unspecified; Z20.822 Contact with and (suspected) exposure to COVID-19; Z96.653 Presence of artificial knee joint, bilateral; E78.5 Hyperlipidemia, unspecified; E66.01 Morbid (severe) obesity due to excess calories; Z79.4 Long term (current) use of insulin; Z79.899 Other long term (current) drug therapy; Z82.49 Family history of ischemic heart disease and other diseases of the circulatory system; Z86.16 Personal history of COVID-19; Z88.6 Allergy status to analgesic agent; Z98.891 History of uterine scar from previous surgery; Z83.3 Family history of diabetes mellitus; Z68.41 Body mass index [BMI] 40.0-44.9, adult
CPT/HCPCS: 36415; 74176; 80053; 82010; 82962; 83605; 83690; 83735; 83880; 84443; 84484; 85025; 85379; 87426; 93005; 93306; 96361; 96365; 96375; 99291; G0378; J1815

== ENCOUNTER 2022-08-16 05:06 | Inpatient (IN) | payer MEDICAID ==
[~2022-08-16] VITALS: Ht 165.1 cm; Wt 117.0 kg
[~2022-08-16 05:06] MED LIST changes: +ATOR40TA52 PO; -LISI20TA28 PO; +LISI20TA56 PO; +MACI1TAB2 PO; -METO25TA5 PO
[2022-08-16] MEDS ORDERED: methylPREDNISolone SOD SUCC 40 MG/ML VL IV ONE (06:45)
[2022-08-16 06:47] LABS: Basophils # (auto) 0 10 ^3/uL (0-0.2); Basophils % (auto) 0.5 % (0.0-2.0); Eosinophils # (auto) 0 10 ^3/uL (0-0.8); Hematocrit 43.4 % (36.0-46.0); Hemoglobin 14.7 g/dL (12.2-16.2); Lymphocytes # (auto) 1.3 10 ^3/uL (0.4-5.4); Lymphocytes % (auto) 41.5 % (10.0-50.0); Mean Corpuscular Hemoglobin 30.2 pg (28.0-32.0); Mean Corpuscular Volume 88.7 fL (80.0-100.0); Monocytes # (auto) 0.3 10 ^3/uL (0-1.3); Monocytes % (auto) 10.4 % (0.0-12.0); Neutrophils # (auto) 1.5 10 ^3/uL (1.6-8.6); Neutrophils % (auto) 47.6 % (37.0-80.0); Nucleated Red Blood Cells % 0.2 %; Red Blood Cells 4.89 10^6/uL (4.0-5.20); Red Cell Distribution Width 14.5 % (11.8-14.3); White Blood Cell 3.2 10^3/uL (4.4-10.8)
[2022-08-16 07:14] LABS: Potassium 3.7 mmol/L (3.5-5.1)
[2022-08-16] MEDS ORDERED: methylPREDNISolone SOD SUCC 125 MG/2 ML VL IV ONE (07:15)
[2022-08-16 07:22] LABS: Albumin 3.5 g/dL (3.4-5.0); BUN/Creatinine Ratio 19.7 (10.0-20.0); Bilirubin, Total 0.4 mg/dL (0.2-1.0); Calcium 8.7 mg/dL (8.5-10.1); Magnesium 1.9 mg/dL (1.6-2.6); Total Protein 6.4 g/dL (6.4-8.2)
[2022-08-16] MEDS ORDERED: ENOXAPARIN SOD 120 MG/0.8 ML SYRINGE SC ONE (08:00)
[2022-08-16] MEDS ORDERED: SPIR25TA8 PO (09:48)
[2022-08-16] MEDS ORDERED: SILD20TA12 PO (09:48)
[2022-08-16] MEDS ORDERED: ATOR-47 PO (09:48)
[2022-08-16] MEDS ORDERED: UPTRAVI PO SCH (10:00)
[2022-08-16] MEDS ORDERED: DEXTROSE (50%) 50ML SYRG IV PRN (10:30)
[2022-08-16] MEDS ORDERED: LEVOTHYROXINE SODIUM 100 MCG TAB PO ONE (11:00)
[2022-08-16] MEDS: ACCU-CHEK COMFORT CURVE STRIP VI SCH ×3 (12:56→22:28)
[2022-08-16] MEDS ORDERED: FUROSEMIDE 40 MG/4 ML VIAL IV SCH (13:30)
[2022-08-16] MEDS: InsuLIN REG 1unit/0.01ml Soln (100units/ml) SC SCH ×2 (13:38→18:00)
[2022-08-16] MEDS: SILDENAFIL CITRATE 20 MG TAB PO SCH ×2 (13:42→22:00)
[2022-08-16] MEDS: FUROSEMIDE 40 MG/4 ML VIAL IV SCH ×2 (14:20→21:59)
[2022-08-16] MEDS: AZITHROMYCIN 500MG/ 250ML 250 ML IV SCH (14:20)
[2022-08-16] MEDS: ACETAMINOPHEN 325 MG TAB PO PRN ×2 (14:56→21:00)
[2022-08-16] MEDS ORDERED: FUROSEMIDE 20 MG/2 ML VIAL IV SCH (18:00)
[2022-08-16] MEDS: SPIRONOLACTONE 25 MG TAB PO SCH (22:00)
[2022-08-16] MEDS ORDERED: ATORVASTATIN 20 MG TAB PO SCH (22:00)
[2022-08-16] MEDS: UPTRAVI PO SCH (22:00)
[2022-08-16] MEDS ORDERED: InsuLIN REG 1unit/0.01ml Soln (100units/ml) SC SCH (22:00)
[2022-08-16] MEDS: INSULIN LANTUS (GLARGINE) 1 /0.01ml (100units/ml) SC SCH (22:42)
[2022-08-17 03:42] VITALS: BP 117/73
[2022-08-17 05:00] VITALS: BP 117/73
[2022-08-17] MEDS ORDERED: SEMA14TA2 PO (06:05)
[2022-08-17] MEDS: SILDENAFIL CITRATE 20 MG TAB PO SCH (07:00)
[2022-08-17] MEDS: FUROSEMIDE 40 MG/4 ML VIAL IV SCH (07:00)
[2022-08-17] MEDS ORDERED: LEVOTHYROXINE SODIUM 100 MCG TAB PO SCH (07:00)
[2022-08-17] MEDS: ACCU-CHEK COMFORT CURVE STRIP VI SCH ×2 (07:01→11:13)
[2022-08-17] MEDS: InsuLIN REG 1unit/0.01ml Soln (100units/ml) SC SCH ×2 (07:11→11:13)
[2022-08-17] MEDS: INSULIN LANTUS (GLARGINE) 1 /0.01ml (100units/ml) SC SCH (07:13)
[2022-08-17] MEDS: UPTRAVI PO SCH (10:00)
[2022-08-17] MEDS ORDERED: PANTOPRAZOLE 40 MG TAB PO SCH (10:00)
[2022-08-17] MEDS ORDERED: CLOPIDOGREL BISULFATE 75 MG TAB PO SCH (10:00)
[2022-08-17] MEDS ORDERED: ENOXAPARIN SOD 40 MG/0.4 ML SYRINGE SC SCH (10:00)
[2022-08-17] MEDS ORDERED: LISINOPRIL 20 MG TAB PO SCH (10:00)
[2022-08-17 10:23] LABS: Basophils # (auto) 0 10 ^3/uL (0-0.2); Basophils % (auto) 0.5 % (0.0-2.0); Eosinophils # (auto) 0 10 ^3/uL (0-0.8); Hematocrit 45.9 % (36.0-46.0); Hemoglobin 15.3 g/dL (12.2-16.2); Lymphocytes # (auto) 1.6 10 ^3/uL (0.4-5.4); Lymphocytes % (auto) 26.6 % (10.0-50.0); Mean Corpuscular Hemoglobin 29.9 pg (28.0-32.0); Mean Corpuscular Hgb Conc. 33.3 g/dL (32.0-36.0); Mean Corpuscular Volume 89.9 fL (80.0-100.0); Monocytes # (auto) 0.5 10 ^3/uL (0-1.3); Monocytes % (auto) 8.4 % (0.0-12.0); Neutrophils # (auto) 3.9 10 ^3/uL (1.6-8.6); Neutrophils % (auto) 64.5 % (37.0-80.0); Nucleated Red Blood Cells % 0.3 %; Red Blood Cells 5.11 10^6/uL (4.0-5.20); Red Cell Distribution Width 14.6 % (11.8-14.3); White Blood Cell 6.1 10^3/uL (4.4-10.8)
[2022-08-17] MEDS: AZITHROMYCIN 500MG/ 250ML 250 ML IV SCH (10:46)
[2022-08-17] MEDS: SPIRONOLACTONE 25 MG TAB PO SCH (10:46)
[2022-08-17 10:47] LABS: Albumin 3.4 g/dL (3.4-5.0); Calcium 8.5 mg/dL (8.5-10.1); Magnesium 2.1 mg/dL (1.6-2.6); Potassium 3.5 mmol/L (3.5-5.1)
[2022-08-17 10:51] LABS: Bilirubin, Total 0.5 mg/dL (0.2-1.0)
[2022-08-17] MEDS ORDERED: AZITTAB PO (12:08)
== END 2022-08-17 14:15 | disposition home or self-care (01) | DRG 207 ==
LOC: ER 05:06 → TELE 10:26 → TELE-WESTW 08-17 02:29
PROVIDERS: ADMIT Nurse Practitioner Family; ATTEND Internal Medicine
DX: I27.20 Pulmonary hypertension, unspecified (principal); J96.21 Acute and chronic respiratory failure with hypoxia; I21.A1 Myocardial infarction type 2; I50.33 Acute on chronic diastolic (congestive) heart failure; I11.0 Hypertensive heart disease with heart failure; E78.5 Hyperlipidemia, unspecified; J06.9 Acute upper respiratory infection, unspecified; E11.65 Type 2 diabetes mellitus with hyperglycemia; Z96.653 Presence of artificial knee joint, bilateral; E66.01 Morbid (severe) obesity due to excess calories; E03.9 Hypothyroidism, unspecified; Z83.3 Family history of diabetes mellitus; Z79.4 Long term (current) use of insulin; Z79.899 Other long term (current) drug therapy; Z86.16 Personal history of COVID-19; Z68.41 Body mass index [BMI] 40.0-44.9, adult; Z82.49 Family history of ischemic heart disease and other diseases of the circulatory system; Z88.6 Allergy status to analgesic agent; Z88.8 Allergy status to other drugs, medicaments and biological substances
CPT/HCPCS: 36415; 71045; 80053; 82962; 83036; 83735; 83880; 84484; 85025; 93005; 93306; 96372; 96374; 99291; G0378; J1815

== ENCOUNTER → 2022-10-11 | Emergency (ER) | payer MEDICAID ==
[~2022-10-11] VITALS: Ht 165.1 cm; Wt 113.6 kg
[~2022-10-11] MED LIST changes: +ATOR-47 PO; +AZITTAB PO; +BACDST PO; +HYDROcodone-ACET 5/325MG TAB PO ONE; +MUPI2OIN2 EX; +NEOMYCIN-BACITRACIN-POLYM UNITDOSE PKG TOP OINT TOP ONE; +SEMA14TA2 PO; +SILD20TA12 PO; +SPIR25TA8 PO; +TETANUS-DIPTH-ACEL PERTUSSIS 0.5ML SYR Tdap IM ONE; +ceFAZolin IM 1GM/2.5ML STERILE WATER IM ONE; +cefTRIAXone SOD 1,000 MG VL IM ONE
[2022-10-11 21:41] LABS: Basophils # (auto) 0 10 ^3/uL (0-0.2); Basophils % (auto) 0.6 % (0.0-2.0); Eosinophils # (auto) 0 10 ^3/uL (0-0.8); Hematocrit 44.9 % (36.0-46.0); Lymphocytes # (auto) 2.1 10 ^3/uL (0.4-5.4); Lymphocytes % (auto) 27.7 % (10.0-50.0); Mean Corpuscular Hemoglobin 29.4 pg (28.0-32.0); Mean Corpuscular Hgb Conc. 33.4 g/dL (32.0-36.0); Mean Corpuscular Volume 87.9 fL (80.0-100.0); Monocytes # (auto) 0.4 10 ^3/uL (0-1.3); Neutrophils # (auto) 5.1 10 ^3/uL (1.6-8.6); Neutrophils % (auto) 66.7 % (37.0-80.0); Nucleated Red Blood Cells % 0.1 %; Red Blood Cells 5.11 10^6/uL (4.0-5.20); Red Cell Distribution Width 14.1 % (11.8-14.3); White Blood Cell 7.6 10^3/uL (4.4-10.8)
[2022-10-11 22:01] LABS: Albumin 3.7 g/dL (3.4-5.0); BUN/Creatinine Ratio 16.7 (10.0-20.0); Calcium 8.9 mg/dL (8.5-10.1); Potassium 3.4 mmol/L (3.5-5.1)
[2022-10-11 22:04] LABS: Bilirubin, Total 0.5 mg/dL (0.2-1.0); Total Protein 7.5 g/dL (6.4-8.2)
[2022-10-11 22:26] VITALS: BP 146/87; PULSE 104; RESP 20; TEMP 97.9; O2SAT 98
== END ==
LOC: ER 18:31
DX: S91.311A Laceration without foreign body, right foot, initial encounter (principal); I11.0 Hypertensive heart disease with heart failure; I50.9 Heart failure, unspecified; E11.65 Type 2 diabetes mellitus with hyperglycemia; E78.5 Hyperlipidemia, unspecified; Z98.51 Tubal ligation status; X58.XXXA Exposure to other specified factors, initial encounter; Y93.89 Activity, other specified; Y92.89 Other specified places as the place of occurrence of the external cause; Y99.8 Other external cause status
CPT/HCPCS: 36415; 73630; 80053; 85025; 90471; 90715; 96372; 99284; J0690; J0696

== ENCOUNTER 2022-10-29 11:10 | Emergency (ER) | payer MEDICAID ==
[~2022-10-29] VITALS: Ht 165.1 cm; Wt 114.3 kg
[~2022-10-29 11:10] MED LIST changes: -HYDROcodone-ACET 5/325MG TAB PO ONE; -NEOMYCIN-BACITRACIN-POLYM UNITDOSE PKG TOP OINT TOP ONE; -TETANUS-DIPTH-ACEL PERTUSSIS 0.5ML SYR Tdap IM ONE; -ceFAZolin IM 1GM/2.5ML STERILE WATER IM ONE; -cefTRIAXone SOD 1,000 MG VL IM ONE
[2022-10-29 12:49] VITALS: BP 103/46; PULSE 110; RESP 16; O2SAT 92
[2022-10-29] MEDS ORDERED: IBUPROFEN 800 MG TAB PO ONE (13:15)
[2022-10-29] MEDS ORDERED: IBUP-1456 PO (13:18)
[2022-10-29 13:19] VITALS: TEMP 98.2
== END 2022-10-29 13:29 | disposition home or self-care (01) ==
LOC: ER 11:10
DX: S63.502A Unspecified sprain of left wrist, initial encounter (principal); I11.0 Hypertensive heart disease with heart failure; I50.9 Heart failure, unspecified; E11.9 Type 2 diabetes mellitus without complications; E78.5 Hyperlipidemia, unspecified; Z98.51 Tubal ligation status; Z88.6 Allergy status to analgesic agent; W18.09XA Striking against other object with subsequent fall, initial encounter; Y93.89 Activity, other specified; Y92.89 Other specified places as the place of occurrence of the external cause; Y99.8 Other external cause status
CPT/HCPCS: 73110